=== PATIENT | female | born 1970 | race Two or more races ===

== ENCOUNTER 2020-03-29 15:47 | Emergency (ER) | payer SELFPAY ==
[~2020-03-29] VITALS: Ht 165.1 cm; Wt 76.8 kg
[2020-03-29 16:25] LABS: BILIRUBIN,URINE NEGATIVE (NEG); CLARITY,URINE CLOUDY; COLOR,URINE YELLOW; NITRITE,URINE NEGATIVE (NEG); PH,URINE 5.5 (<5.0-8.0); PROTEIN,URINE NEGATIVE (NEG-TRACE); UROBILINOGEN,URINE 0.2 mg/dL (0.2 mg/dL)
[2020-03-29 16:29] LABS: BACTERIA,URINE 0 /HPF (0-FEW); RBC,URINE 0 /HPF (0-2); WBC,URINE OCC /HPF (0-4)
[2020-03-29 16:32] LABS: BARBITURATES NEG (NEG); BENZODIAZEPINES NEG (NEG); CANNABINOIDS NEG (NEG); COCAINE NEG (NEG); METHADONE NEG (NEG); OPIATES NEG (NEG); PHENCYCLIDINE NEG (NEG)
[2020-03-29 16:41] LABS: AMPHETAMINE/METHAMPHETAMINE NEG (NEG)
[2020-03-29 17:00] VITALS: BP 135/70
--- NOTE | 2020-03-29 17:09 | PHYS DOC ---
Past Medical History Past Medical History: Depression Past Surgical History: No Surgical History Smoking Status: Never Smoker Alcohol Use: None General Adult EDM: Chief Complaint: DEPRESSION HPI: HPI: Patient is a 50 year old female with history of depression who presents to the ED today complaining of generalized sadness that began today. Patient is in the ED with the son who is doing interpretation for [place]. Son reports patient has history of depression and is on citalopram. Patient denies any suicidal homicidal ideations. Review of Systems: Review of Systems: Constitutional: Denies fever or chills. [] Eyes: Denies change in visual acuity. [] HENT: Denies nasal congestion or sore throat. [] Respiratory: Denies cough or shortness of breath. [] Cardiovascular: Denies chest pain or edema. [] GI: Denies abdominal pain, nausea, vomiting, bloody stools or diarrhea. [] : Denies dysuria. [] Musculoskeletal: Denies back pain or joint pain. [] Integument: Denies rash. [] Neurologic: Denies headache, focal weakness or sensory changes. [] Psychiatric: Reports depression and sadness Heart Score: Risk Factors: Risk Factors: DM, Current or recent (<one month) smoker, HTN, HLP, family history of CAD, obesity. Risk Scores: Score 0 - 3: 2.5% MACE over next 6 weeks - Discharge Home Score 4 - 6: 20.3% MACE over next 6 weeks - Admit for Clinical Observation Score 7 - 10: 72.7% MACE over next 6 weeks - Early Invasive Strategies Allergies: Allergies: Allergies Coded Allergies Type Severity Reaction Last Updated Verified erythromycin base Allergy Intermediate rash 03/29/20 Yes Physical Exam: PE: Constitutional: Well developed, well nourished, no acute distress, non-toxic appearance. [] HENT: Normocephalic, atraumatic, bilateral external ears normal, oropharynx moist, no oral exudates, nose normal. [] Eyes: PERRLA, EOMI, conjunctiva normal, no discharge. [] Neck: Normal range of motion, no tenderness, supple, no stridor. [] Cardiovascular:Heart rate regular rhythm, no murmur [] Lungs & Thorax: Bilateral breath sounds clear to auscultation [] Abdomen: Bowel sounds normal, soft, no tenderness, no masses, no pulsatile masses. [] Skin: Warm, dry, no erythema, no rash. [] Back: No tenderness, no CVA tenderness. [] Extremities: No tenderness, no cyanosis, no clubbing, ROM intact, no edema. [] Neurologic: Alert and oriented X 3, normal motor function, normal sensory function, no focal deficits noted. [] Psychologic: Flat affect, depressed mood Current Patient Data: Labs: Laboratory Tests Test 03/29/20 16:05 03/29/20 16:24 Urine Collection Type Unknown Urine Color Yellow Urine Clarity Cloudy Urine pH 5.5 (<5.0-8.0) Urine Specific [place] <=1.005 (1.000-1.030) Urine Protein Negative mg/dL (NEG-TRACE) Urine Glucose (UA) Negative mg/dL (NEG) Urine Ketones (Stick) Negative mg/dL (NEG) Urine Blood Negative (NEG) Urine Nitrite Negative (NEG) Urine Bilirubin Negative (NEG) Urine Urobilinogen Dipstick 0.2 mg/dL (0.2 mg/dL) Urine Leukocyte Esterase Negative (NEG) Urine RBC 0 /HPF (0-2) Urine WBC Occ /HPF (0-4) Urine Squamous Epithelial Cells Mod /LPF Urine Bacteria 0 /HPF (0-FEW) Urine Opiates Screen Neg (NEG) Urine Methadone Screen Neg (NEG) Urine Barbiturates Neg (NEG) Urine Phencyclidine Screen Neg (NEG) Urine Amphetamine/Methamphetamine Neg (NEG) Urine Benzodiazepines Screen Neg (NEG) Urine Cocaine Screen Neg (NEG) Urine Cannabinoids Screen Neg (NEG) Urine Ethyl Alcohol Neg (NEG) POC Urine HCG, Qualitative Hcg negative (Negative) Vital Signs: Vital Signs Date Time Temp Pulse Resp B/P (MAP) Pulse Ox O2 Delivery O2 Flow Rate FiO2 03/29/20 16:10 98.1 106 24 133/73 (93) 97 Room Air 98.1 EKG: EKG: [] Radiology/Procedures: Radiology/Procedures: [] Course & Med Decision Making: Course & Med Decision Making Pertinent Labs and Imaging studies reviewed. (See chart for details) This is a 50-year-old female patient presenting to the ED today complaining of generalized sadness, has history of depression and currently on citalopram. Has no suicidal or homicidal ideations. Analy from the [facility] team came to talk to patient and gave her resources. Patient was discharged to home safely. Suleiman Disclaimer: Suleiman Disclaimer: This electronic medical record was generated, in whole or in part, using a voice recognition dictation system. Departure Departure Impression: Primary Impression: Depression Qualified Codes: F32.9 - Major depressive disorder, single episode, unspecified Disposition: 01 DC HOME SELF CARE/HOMELESS Condition: STABLE Referrals: UNKNOWN PCP NAME (PCP) Followup with resources provided by Analy from the [facility] team Patient Instructions: Depression, Adult Additional Instructions: You were evaluated in the emergency room for depression. Follow-up with the resources provided by Analy. Come back to the ED at any point you have concerning symptoms ELMO QUIROZ APRN Mar 29, 2020 17:09
== END 2020-03-29 17:24 | disposition home or self-care (01) ==
LOC: ER 15:47
DX: F32.9 Major depressive disorder, single episode, unspecified (principal); Z88.1 Allergy status to other antibiotic agents
CPT/HCPCS: 80307; 81001; 81025; 99283